=== PATIENT | female | born 1975 ===

== ENCOUNTER 2016-11-11 11:28 | Emergency (ER) | payer OTHER, SELFPAY ==
[2016-11-11 11:29] VITALS: BMI 21.5
[2016-11-11 11:38] VITALS: RESP 18
[2016-11-11 11:56] LABS: RBC URINE 2 /hpf (0-3); URINE BACTERIA RARE (<OCC); URINE BILIRUBIN NEGATIVE (NEGATIVE); URINE BLOOD NEGATIVE (NEGATIVE); URINE COLOR Yellow (YELLOW); URINE GLUCOSE (UA) NORMAL (Normal); URINE KETONE NEGATIVE (NEGATIVE); URINE LEUKOCYTE ESTERASE 1+ Leu/uL (Negative); URINE PROTEIN NEGATIVE (NEGATIVE); URINE UROBILINOGEN NORMAL mg/dL (0.2-1.0); WBC URINE 7 /hpf (0-5)
[2016-11-11] MEDS ORDERED: Sodium Chloride 0.9% 1,000 ML IV ONE (11:58)
[2016-11-11] MEDS ORDERED: Sodium Chloride 0.9% 1,000 ML ONE (12:08)
--- NOTE | 2016-11-11 12:24 | C.PDOC ---
History Of Present Illness 41 year old female, , presents to Emergency Department for evaluation of intermittent lower abdominal/pelvic pain associated with nausea for the last 2 weeks. Pt was told she is but is not sure how far along she is in her . She denies vaginal bleeding, vaginal discharge, vomiting, diarrhea, dysuria, hematuria, or fever. LMP: 10/04/16. Time Seen by Provider: 11/11/16 11:44 Chief Complaint (Nursing): Abdominal Pain History Per: Patient History/Exam Limitations: no limitations Onset/Duration Of Symptoms: Days (2 weeks) Current Symptoms Are (Timing): Still Present Severity: Mild Location Of Pain/Discomfort: Suprapubic Radiation Of Pain To:: None Quality Of Discomfort: "Pain" Associated Symptoms: Nausea. denies: Loss Of Appetite, Back Pain, Chest Pain, Urinary Symptoms Exacerbating Factors: None Alleviating Factors: None Additional History Per: Patient Abnormal Vaginal Bleeding: No Last Menstral Period: 10/04/16 : 4 Para: 3 Past Medical History Reviewed: Historical Data, Nursing Documentation, Vital Signs Vital Signs: Last Vital Signs Temp 97.7 F 11/11/16 14:01 Pulse 74 11/11/16 14:01 Resp 18 11/11/16 14:01 BP 117/78 11/11/16 14:01 Pulse Ox 98 11/11/16 15:01 - Medical History PMH: Anxiety, Asthma, HTN Surgical History: - [facility] Procedures LOW CERVICAL (03/22/13) Family History: States: No Known Family Hx - Social History Hx Tobacco Use: No Hx Alcohol Use: No Hx Substance Use: No - Immunization History Hx Tetanus Toxoid Vaccination: No Hx Influenza Vaccination: No Hx Pneumococcal Vaccination: No Review Of Systems Except As Marked, All Systems Reviewed And Found Negative. Constitutional: Negative for: Fever, Chills Cardiovascular: Negative for: Chest Pain Respiratory: Negative for: Shortness of Breath Gastrointestinal: Positive for: Nausea, Abdominal Pain. Negative for: Vomiting , Diarrhea, Constipation Genitourinary: Negative for: Dysuria, Frequency, Hematuria, Vaginal Discharge, Vaginal Bleeding Musculoskeletal: Negative for: Back Pain Physical Exam - Physical Exam Appears: Well, Non-toxic, No Acute Distress Skin: Normal Color, Warm, Dry Eye(s): bilateral: Normal Inspection Oral Mucosa: Moist Neck: Supple Cardiovascular: Rhythm Regular Respiratory: Normal Breath Sounds, No Rales, No Rhonchi, No Wheezing Gastrointestinal/Abdominal: Bowel Sounds, Soft, Tenderness (mild suprapubic TTP , (-) McBurney's), No Guarding, No Rebound Back: Normal Inspection, No CVA Tenderness Extremity: Bilateral: Atraumatic, Normal ROM Neurological/Psych: Oriented x3 ED Course And Treatment - Laboratory Results Result Diagrams: 11/11/16 12:20 11/11/16 12:20 O2 Sat by Pulse Oximetry: 98 (on RA) Pulse Ox Interpretation: Normal - CT Scan/US transvaginal US Other Rad Studies (CT/US): Read By Radiologist, Radiology Report Reviewed CT/US Interpretation: Indication: Pelvic pain, . Comparison: None available. Technique: Transvaginal pelvic ultrasound. Findings: The uterus measures approximately 10.8 x 6.1 x 6.1 cm. Anteverted. Cervix length measures approximately 4.1 cm. The gestational sac measures approximately 1.4 cm and is compatible with a gestational age of 5 weeks 5 days. Yolk sac and pole are not visualized. The right ovary measures 3.8 x 3.0 x 3.4 cm and contains 2.8 x 2.3 x 2.8 cm anechoic right renal lesion consistent with a cyst. The left ovary measures 2.2 x 1.2 x 2.1 cm. Blood flow was demonstrated to both ovaries. Small pelvic free fluid adjacent to the right ovary. Impression: Intrauterine gestational sac consistent with gestational age 5 weeks 5 days. No yolk sac or pole are not visualized. Correlate clinically. 2.8 cm probable right renal cyst. Small pelvic free fluid adjacent to the right ovary. Progress Note: Plan: Blood work, UA, OB transvaginal ultrasound ordered and reviewed. Patient given IV NS bolus, PO tylenol. Reevaluation Time: 13:50 Reassessment Condition: Improved (On reassessment, patient is resting comfortably and states she has no current pain. On exam, abdomen is soft and nontender. Blood work is unremarkable, US shows gestational sac consistent with [id number]. UA (+) for UTI - Rxs for macrobid and tylenol given. Patient instructed to return to ED or her pin ball machine mechanic in 48 hours for repeat beta and US to r /o ectopic/miscarriage (no heart beat on US). She understands she should return sooner if she has any concerning symptoms.) Disposition Counseled Patient/Family Regarding: Studies Performed, Diagnosis, Need For Followup, Rx Given - Disposition Referrals: [facility] at [facility] [Outside] Disposition: HOME/ ROUTINE Disposition Time: 13:55 Condition: STABLE Additional Instructions: DEVUELVA A LA QAMAR DE EMERGENCIA EN 48 HORAS PARA REPETIR EL NIVEL DE HORMONA Y EL ULTRASONIDO USE TYLENOL CHITRA SE NECESITA PARA EL DOLOR DEVUELVA A LA QAMAR DE EMERGENCIA SI LOS SNTOMAS EMPEORARAN Prescriptions: Acetaminophen [Tylenol 325mg tab] 650 mg PO Q6 PRN #30 tab PRN Reason: pain/fever Nitrofurantoin Macrocrystals [Macrobid] 1 cap PO BID #14 cap Instructions: (ED), Abdominal Pain in (ED), Urinary Tract Infection in (ED) Forms: [employer] (French) Print Language: LIBERIAN - Clinical Impression Clinical Impression: UTI (urinary tract infection), Abdominal pain affecting - Scribe Statement The provider has reviewed the documentation as recorded by the Scribe Rylie Joyce All medical record entries made by the Scribe were at my direction and personally dictated by me. I have reviewed the chart and agree that the record accurately reflects my personal performance of the history, physical exam, medical decision making, and the department course for this patient. I have also personally directed, reviewed, and agree with the discharge instructions and disposition.
[2016-11-11 12:25] LABS: BASO # 0.1 K/uL (0.0-0.2); BASO % 1.2 % (0.0-2.0); EOS # 0.1 K/uL (0.0-0.7); EOS % 1.4 % (0.0-4.0); HEMATOCRIT 31.7 % (34.0-47.0); LYMPH # 2.1 K/uL (1.0-4.3); LYMPH % 29.7 % (20.0-40.0); MEAN CELL VOLUME 82.9 fL (81.0-99.0); MEAN CORPUSCULAR HEMOGLOBIN 27.1 pg (27.0-31.0); MEAN CORPUSCULAR HGB CONC 32.7 g/dL (33.0-37.0); MEAN PLATELET VOLUME 8.3 fL (7.2-11.7); MONO # 0.3 K/uL (0.0-0.8); MONO % 4.7 % (0.0-10.0); WHITE BLOOD COUNT 7.1 K/uL (4.8-10.8)
[2016-11-11 12:47] LABS: CHLORIDE 106 mmol/L (98-107); POTASSIUM 3.9 mmol/L (3.6-5.2); SODIUM 139 mmol/L (132-148)
[2016-11-11 12:49] LABS: BILIRUBIN,TOTAL 0.4 mg/dL (0.2-1.3); GFR AFRICAN-AMERICAN > 60
[2016-11-11 12:50] LABS: ALB/GLOB RATIO 1.3 (1.0-2.1); ALKALINE PHOSPHATASE 84 U/L (38-126); ALT/SGPT 30 U/L (9-52); AST/SGOT 23 U/L (14-36); BLOOD UREA NITROGEN 12 mg/dL (7-17); CARBON DIOXIDE 23 mmol/L (22-30); GLUCOSE,RANDOM 101 mg/dL (65-105); TOTAL PROTEIN 7.1 g/dL (6.3-8.3)
[2016-11-11 12:51] LABS: CALCIUM 8.7 mg/dl (8.6-10.4)
--- NOTE | 2016-11-11 13:39 | US ---
Indication: Pelvic pain, Comparison: None available. Technique: Transvaginal pelvic ultrasound. Findings: The uterus measures approximately 10.8 x 6.1 x 6.1 cm. Anteverted. Cervix length measures approximately 4.1 cm. The gestational sac measures approximately 1.4 cm and is compatible with a gestational age of 5 weeks 5 days. Yolk sac and pole are not visualized. The right ovary measures 3.8 x 3.0 x 3.4 cm and contains 2.8 x 2.3 x 2.8 cm anechoic right renal lesion consistent with a cyst. The left ovary measures 2.2 x 1.2 x 2.1 cm. Blood flow was demonstrated to both ovaries. Small pelvic free fluid adjacent to the right ovary. Impression: Intrauterine gestational sac consistent with gestational age 5 weeks 5 days. No yolk sac or pole are not visualized. Correlate clinically. 2.8 cm probable right renal cyst. Small pelvic free fluid adjacent to the right ovary.
[2016-11-11 14:02] VITALS: BP 117/78; PULSE 74; TEMP 97.7
[2016-11-11 15:01] VITALS: O2SAT 98
== END 2016-11-11 14:02 | disposition home or self-care (01) ==
LOC: C.ER 11:28
DX: O23.41 Unspecified infection of urinary tract in pregnancy, first trimester (principal); R10.9 Unspecified abdominal pain; Z3A.01 Less than 8 weeks gestation of pregnancy
CPT/HCPCS: 76817; 80053; 81001; 84702; 84703; 85025; 86850; 86900; 96360; 99285; J7040

== ENCOUNTER 2016-11-13 13:16 | Emergency (ER) | payer OTHER ==
[2016-11-13 13:16] VITALS: BMI 21.5
[2016-11-13 13:38] VITALS: O2SAT 100
[2016-11-13] MEDS ORDERED: Sodium Chloride 0.9% 1,000 ML IV ONE (14:10)
[2016-11-13] MEDS ORDERED: Sodium Chloride 0.9% 1,000 ML ONE (14:20)
[2016-11-13 14:26] LABS: BASO # 0.1 K/uL (0.0-0.2); BASO % 0.8 % (0.0-2.0); EOS # 0.1 K/uL (0.0-0.7); EOS % 1.1 % (0.0-4.0); HEMATOCRIT 31.4 % (34.0-47.0); LYMPH # 2.5 K/uL (1.0-4.3); LYMPH % 30.1 % (20.0-40.0); MEAN CELL VOLUME 83.5 fL (81.0-99.0); MEAN CORPUSCULAR HEMOGLOBIN 27.6 pg (27.0-31.0); MEAN CORPUSCULAR HGB CONC 33.1 g/dL (33.0-37.0); MEAN PLATELET VOLUME 8.5 fL (7.2-11.7); MONO # 0.5 K/uL (0.0-0.8); MONO % 6.1 % (0.0-10.0); RED CELL DISTRIBUTION WIDTH 14.9 % (11.5-14.5); WHITE BLOOD COUNT 8.2 K/uL (4.8-10.8)
[2016-11-13 14:35] LABS: ALB/GLOB RATIO 1.2 (1.0-2.1); ALKALINE PHOSPHATASE 81 U/L (38-126); ALT/SGPT 31 U/L (9-52); AST/SGOT 24 U/L (14-36); BILIRUBIN,TOTAL 0.4 mg/dL (0.2-1.3); BLOOD UREA NITROGEN 10 mg/dL (7-17); CALCIUM 9.3 mg/dl (8.6-10.4); CARBON DIOXIDE 23 mmol/L (22-30); CHLORIDE 100 mmol/L (98-107); GFR AFRICAN-AMERICAN > 60; GLUCOSE,RANDOM 92 mg/dL (65-105); POTASSIUM 3.7 mmol/L (3.6-5.2); SODIUM 136 mmol/L (132-148); TOTAL PROTEIN 7.5 g/dL (6.3-8.3)
--- NOTE | 2016-11-13 15:27 | US ---
HISTORY: Pain, r/o ectopic. COMPARISON: Transvaginal pelvic ultrasound examination 11/11/2016. TECHNIQUE: Transvaginal pelvic ultrasound is performed for evaluation and persistent pelvic pain. FINDINGS: UTERUS: Measures 10.2 x 6.7 x 6.7 cm. Intrauterine gestation is identified once again with a gestational sac is mean sac diameter measures 1.5 cm corresponding to 5 weeks 6 days estimated gestational age. The pole yolk sac are yet not identified which is consistent with the prior ultrasound showing the same pattern. The prior examination yield a gestational age of 5 weeks 5 days which is concordant with the current exam. Additionally reaction remains grossly unremarkable no definite hemorrhage seen related. No myometrial pathology grossly evident. ENDOMETRIUM: Intrauterine gestation. CERVIX: No cervical abnormality identified. RIGHT OVARY: Measures 4.2 x 3.9 x 4.0 cm. No solid mass. A 2.9 x 2.5 x 3.0 cm simple cyst identified in the right ovary, not simply changed in the interval. Normal intra-ovarian arterial blood flow is been captured on spectral Doppler analysis. LEFT OVARY: Measures 1.9 x 1.5 x 1.9 cm. No solid mass. Normal intra-ovarian arterial blood flow is been captured on spectral Doppler analysis. FREE FLUID: Trace cul-de-sac fluid is seen as well as of the right adnexal compartment. OTHER FINDINGS: No definitive ectopic gestation appreciable this time. IMPRESSION: Intrauterine gestation is suggested with mean sac diameter suggesting 5 weeks 6 days estimated gestational age which is concordant with prior transvaginal pelvic ultrasound 11/11/2016. No yolk sac or pole yet visible. Viability under clear, with failure of not excluded. No definite ectopic gestation. Still, pseudo gestational sac with ectopic gestation not completely excluded and further clinical correlation is advised. Sonographic follow-up is advised in 1 week. Stable probable corpus luteum cyst right ovary.
[2016-11-13 15:56] LABS: URINE BILIRUBIN NEGATIVE (NEGATIVE); URINE BLOOD NEGATIVE (NEGATIVE); URINE COLOR Straw (YELLOW); URINE GLUCOSE (UA) NORMAL (Normal); URINE KETONE NEGATIVE (NEGATIVE); URINE LEUKOCYTE ESTERASE NEG Leu/uL (Negative); URINE PROTEIN NEGATIVE (NEGATIVE); URINE UROBILINOGEN NORMAL mg/dL (0.2-1.0); WBC URINE < 1 /hpf (0-5)
--- NOTE | 2016-11-13 16:40 | C.PDOC ---
History Of Present Illness Pt is here for repeat pelvic US and beta hcg (she was seen here 2 days ago and asked to return). Time Seen by Provider: 11/13/16 13:54 Chief Complaint (Nursing): Abdominal Pain History Per: Patient, Scrapper History/Exam Limitations: language barrier Onset/Duration Of Symptoms: Days Current Symptoms Are (Timing): Still Present Severity: Moderate Location Of Pain/Discomfort: Suprapubic Quality Of Discomfort: "Pain" Associated Symptoms: Nausea Alleviating Factors: None Additional History Per: Prior Records Abnormal Vaginal Bleeding: No Past Medical History Reviewed: Historical Data, Nursing Documentation, Vital Signs Vital Signs: Last Vital Signs Temp 98.2 F 11/13/16 13:32 Pulse 79 11/13/16 13:32 Resp 16 11/13/16 14:05 BP 104/71 11/13/16 13:32 Pulse Ox 100 11/13/16 13:32 - Medical History PMH: Anxiety, Asthma, HTN Surgical History: - [facility] Procedures LOW CERVICAL (03/22/13) Family History: States: Unknown Family Hx - Social History Hx Tobacco Use: No Hx Alcohol Use: No Hx Substance Use: No - Immunization History Hx Tetanus Toxoid Vaccination: No Hx Influenza Vaccination: No Hx Pneumococcal Vaccination: No Review Of Systems Except As Marked, All Systems Reviewed And Found Negative. Constitutional: Negative for: Fever Cardiovascular: Negative for: Chest Pain Respiratory: Negative for: Shortness of Breath Gastrointestinal: Negative for: Vomiting Genitourinary: Positive for: Pelvic Pain. Negative for: Dysuria Musculoskeletal: Negative for: Neck Pain Skin: Negative for: Rash Neurological: Negative for: Weakness, Numbness Physical Exam - Physical Exam Appears: Non-toxic, No Acute Distress Skin: Normal Color, Warm, Dry, No Rash Head: Atraumatic, Normacephalic Eye(s): bilateral: PERRL, EOMI Oral Mucosa: Moist Neck: Normal ROM, Supple Cardiovascular: Rhythm Regular Respiratory: Normal Breath Sounds, No Accessory Muscle Use Gastrointestinal/Abdominal: Soft, Tenderness (mild, nonspecific), No Guarding, No Rebound Back: No CVA Tenderness Extremity: Normal ROM Neurological/Psych: Oriented x3, Normal Speech, Normal Cognition, Normal Motor, Normal Sensation ED Course And Treatment - Laboratory Results Result Diagrams: 11/13/16 14:19 11/13/16 14:19 Interpretation Of Abnormal: Beta hcg is increasing. Hgb is stable. UTI resolved. O2 Sat by Pulse Oximetry: 100 Pulse Ox Interpretation: Normal - CT Scan/US Pelvic US Other Rad Studies (CT/US): Read By Radiologist, Radiology Report Reviewed CT/US Interpretation: IMPRESSION: Intrauterine gestation is suggested with mean sac diameter suggesting 5 weeks 6 days estimated gestational age which is concordant with prior transvaginal pelvic ultrasound 11/11/2016. No yolk sac or pole yet visible. Viability under clear, with failure of not excluded. No definite ectopic gestation. Still, pseudo gestational sac with ectopic gestation not completely excluded and further clinical correlation is advised. Sonographic follow-up is advised in 1 week. Stable probable corpus luteum cyst right ovary. - Physician Consult Information Physician Contacted: Melany Joyce (Rn Case Manager) Outcome Of Conversation: I discussed with her the pt's presentation, lab and US findings. She states pt has a failed and recommends pt to be discharged and f/up with outpt Rn Case Manager for D&C. Disposition Counseled Patient/Family Regarding: Studies Performed, Diagnosis, Need For Followup - Disposition Referrals: Brendon Garsia [Staff Provider] - [facility] [Outside] Disposition: HOME/ ROUTINE Disposition Time: 16:45 Condition: FAIR Additional Instructions: Follow up in the clinic within 1 week for further evaluation and treatment. Return to the ER if you develop heavy bleeding, dizziness, worsening of symptoms or if you have any other concerns. Forms: [employer] (Kuwaiti), Gen Discharge Inst Kuwaiti Print Language: PRYDEINIG - Clinical Impression Clinical Impression: Blighted ovum
[2016-11-13 17:08] VITALS: BP 108/72; PULSE 68; RESP 18; TEMP 98.5
== END 2016-11-13 17:14 | disposition home or self-care (01) ==
LOC: C.ER 13:16
DX: O02.0 Blighted ovum and nonhydatidiform mole (principal)
CPT/HCPCS: 76817; 80053; 81001; 84702; 85025; 87086; 96361; 96374; 96375; 99285; J2765; J7040

== ENCOUNTER 2016-11-28 12:44 | Emergency (ER) | payer OTHER ==
[2016-11-28 12:45] VITALS: BMI 21.5
== END 2016-11-28 13:54 | disposition left against medical advice (07) ==
LOC: C.ER 12:44
DX: Z02.89 Encounter for other administrative examinations (principal); R10.9 Unspecified abdominal pain

== ENCOUNTER 2016-11-29 09:30 | Emergency (ER) | payer OTHER ==
[2016-11-29 09:30] VITALS: BMI 21.5
[2016-11-29 09:59] VITALS: RESP 18; O2SAT 99
[2016-11-29 10:28] LABS: BASO # 0.1 K/uL (0.0-0.2); BASO % 1.1 % (0.0-2.0); EOS # 0.1 K/uL (0.0-0.7); EOS % 0.8 % (0.0-4.0); HEMATOCRIT 30.9 % (34.0-47.0); LYMPH % 24.8 % (20.0-40.0); MEAN CELL VOLUME 83.8 fL (81.0-99.0); MEAN CORPUSCULAR HEMOGLOBIN 27.1 pg (27.0-31.0); MEAN CORPUSCULAR HGB CONC 32.3 g/dL (33.0-37.0); MEAN PLATELET VOLUME 8.5 fL (7.2-11.7); MONO # 0.4 K/uL (0.0-0.8); MONO % 5.1 % (0.0-10.0); RED CELL DISTRIBUTION WIDTH 15.7 % (11.5-14.5)
[2016-11-29 10:36] LABS: CHLORIDE 105 mmol/L (98-107)
[2016-11-29 10:37] LABS: POTASSIUM 3.9 mmol/L (3.6-5.2); SODIUM 138 mmol/L (132-148)
[2016-11-29 10:39] LABS: ALB/GLOB RATIO 1.2 (1.0-2.1); AST/SGOT 26 U/L (14-36); BILIRUBIN,TOTAL 0.5 mg/dL (0.2-1.3); BLOOD UREA NITROGEN 9 mg/dL (7-17); CARBON DIOXIDE 22 mmol/L (22-30); GFR AFRICAN-AMERICAN > 60; TOTAL PROTEIN 7.4 g/dL (6.3-8.3)
[2016-11-29 10:40] LABS: ALKALINE PHOSPHATASE 69 U/L (38-126); ALT/SGPT 34 U/L (9-52); CALCIUM 9.1 mg/dl (8.6-10.4); GLUCOSE,RANDOM 94 mg/dL (65-105)
[2016-11-29 11:06] LABS: RBC URINE 3 /hpf (0-3); URINE BACTERIA RARE (<OCC); URINE BILIRUBIN NEGATIVE (NEGATIVE); URINE BLOOD NEGATIVE (NEGATIVE); URINE COLOR Yellow (YELLOW); URINE GLUCOSE (UA) NORMAL (Normal); URINE KETONE NEGATIVE (NEGATIVE); URINE LEUKOCYTE ESTERASE 1+ Leu/uL (Negative); URINE PROTEIN NEGATIVE (NEGATIVE); URINE UROBILINOGEN NORMAL mg/dL (0.2-1.0); WBC URINE 6 /hpf (0-5)
--- NOTE | 2016-11-29 11:17 | US ---
Indication: Pain Comparison: Ob transvaginal ultrasound performed 11/13/16 Technique: Transvaginal pelvic ultrasound Findings: The uterus measures approximately 12.2 x 6.2 x 8.8 cm. Retroverted. Cervix length measures approximately 3.5 cm. There is a single intrauterine fetus present. 3 mm yolk sac. The gestational sac measures 4.6 cm and is compatible with a gestational age of 10 weeks 1 day. The crown-rump length measures 2.0 cm and is compatible with a gestational age of 8 weeks 4 days. heart motion is not detected. The right ovary measures 3.9 x 2.9 x 3.2 cm and contains 2.7 cm cyst. The left ovary measures 3.5 x 1.7 x 2.9 cm. Blood flow was demonstrated to both ovaries. Impression: Single intrauterine with estimated gestational age 10 weeks 1 day by gestational sac calculation and 8 weeks 4 days by crown-rump length calculation. heart motion was not detected. Correlate clinically. 2.7 cm right ovarian cyst.
--- NOTE | 2016-11-29 11:46 | C.PDOC ---
History Of Present Illness 41 y/o female currently presents to ED with complaints of pelvic pain since yesterday. Occasional nausea. Patient denies vaginal bleeding, vaginal discharge, dysuria, urinary frequency, fever, back pain or any other complaints at this time. Time Seen by Provider: 11/29/16 09:47 Chief Complaint (Nursing): Abdominal Pain History Per: Patient History/Exam Limitations: no limitations Onset/Duration Of Symptoms: Days Current Symptoms Are (Timing): Still Present Past Medical History Reviewed: Historical Data, Nursing Documentation, Vital Signs Vital Signs: Last Vital Signs Temp 98 F 11/29/16 12:09 Pulse 79 11/29/16 12:09 Resp 18 11/29/16 12:09 BP 117/79 11/29/16 12:09 Pulse Ox 99 11/29/16 12:09 - Medical History PMH: Anxiety, Asthma, HTN Surgical History: - [facility] Procedures LOW CERVICAL (03/22/13) Family History: States: No Known Family Hx - Social History Hx Tobacco Use: No Hx Alcohol Use: No Hx Substance Use: No - Immunization History Hx Tetanus Toxoid Vaccination: No Hx Influenza Vaccination: No Hx Pneumococcal Vaccination: No Review Of Systems Except As Marked, All Systems Reviewed And Found Negative. Genitourinary: Positive for: Pelvic Pain. Negative for: Dysuria, Frequency, Vaginal Discharge, Vaginal Bleeding Musculoskeletal: Negative for: Back Pain Skin: Negative for: Rash Physical Exam - Physical Exam Appears: Non-toxic, No Acute Distress Skin: Normal Color, Warm, Dry, No Rash Head: Atraumatic, Normacephalic Eye(s): bilateral: Normal Inspection, EOMI Nose: Normal Oral Mucosa: Moist Neck: Normal ROM, Supple Chest: Symmetrical Cardiovascular: Rhythm Regular, No Murmur Respiratory: Normal Breath Sounds, No Rales, No Rhonchi, No Wheezing Gastrointestinal/Abdominal: Soft, Tenderness ((+) suprapubic tenderness), No Guarding, No Rebound Neurological/Psych: Oriented x3 ED Course And Treatment - Laboratory Results Result Diagrams: 11/29/16 10:21 11/29/16 10:21 O2 Sat by Pulse Oximetry: 99 (RA) Pulse Ox Interpretation: Normal - CT Scan/US OB Transvaginal Preg Other Rad Studies (CT/US): Interpreted By Me, Read By Radiologist CT/US Interpretation: Indication: Pain. Comparison: Ob transvaginal ultrasound performed 11/13/16. Technique: Transvaginal pelvic ultrasound. Findings: The uterus measures approximately 12.2 x 6.2 x 8.8 cm. Retroverted. Cervix length measures approximately 3.5 cm. There is a single intrauterine fetus present. 3 mm yolk sac. The gestational sac measures 4.6 cm and is compatible with a gestational age of 10 weeks 1 day. The crown-rump length measures 2.0 cm and is compatible with a gestational age of 8 weeks 4 days. heart motion is not detected. The right ovary measures 3.9 x 2.9 x 3.2 cm and contains 2.7 cm cyst. The left ovary measures 3.5 x 1.7 x 2.9 cm. Blood flow was demonstrated to both ovaries. Impression: Single intrauterine with estimated gestational age 10 weeks 1 day by gestational sac calculation and 8 weeks 4 days by crown-rump length calculation. heart motion was not detected. Correlate clinically. 2.7 cm right ovarian cyst. Progress Note: Case discussed with OB construction tech (Dr. Quintero), Patient had a missed and will possible need an outpatient D&C. Discussed US results with patient and instructed to follow up with OB tomorrow. Copies of work up given to patient. Transcription used for better understanding of patient Disposition - Disposition Disposition: HOME/ ROUTINE Disposition Time: 11:50 Condition: STABLE Additional Instructions: Vaya a faith mdico o la clnica en manana sin falta, para mas evaluacin. Volver a la kianna de emergencia en cualquier momento si los sntomas persisten o empeoran. Instructions: Threatened Miscarriage (ED) Forms: [employer] (Sierra Leonean) Print Language: KYRGYZ - Clinical Impression Clinical Impression: Missed - PA / PAD MACHINE FEEDER / Resident Statement MD/DO has reviewed & agrees with the documentation as recorded. - Scribe Statement The provider has reviewed the documentation as recorded by the Janessaibmichael Ureña All medical record entries made by the Scribe were at my direction and personally dictated by me. I have reviewed the chart and agree that the record accurately reflects my personal performance of the history, physical exam, medical decision making, and the department course for this patient. I have also personally directed, reviewed, and agree with the discharge instructions and disposition.
[2016-11-29 12:10] VITALS: BP 117/79; PULSE 79; TEMP 98
== END 2016-11-29 12:10 | disposition home or self-care (01) ==
LOC: C.ER 09:30
DX: O02.1 Missed abortion (principal)

== ENCOUNTER 2016-12-21 09:48 | Emergency (ER) | payer SELFPAY ==
[2016-12-21 09:48] VITALS: BMI 21.5
[2016-12-21 09:58] VITALS: O2SAT 100
[2016-12-21 10:50] LABS: BASO % 0.4 % (0.0-2.0); EOS # 0.1 K/uL (0.0-0.7); EOS % 1.3 % (0.0-4.0); HEMATOCRIT 32.9 % (34.0-47.0); LYMPH # 2.3 K/uL (1.0-4.3); LYMPH % 26.4 % (20.0-40.0); MEAN CORPUSCULAR HEMOGLOBIN 28.2 pg (27.0-31.0); MEAN CORPUSCULAR HGB CONC 33.2 g/dL (33.0-37.0); MEAN PLATELET VOLUME 8.5 fL (7.2-11.7); MONO # 0.5 K/uL (0.0-0.8); MONO % 6.4 % (0.0-10.0); RED CELL DISTRIBUTION WIDTH 16.3 % (11.5-14.5); WHITE BLOOD COUNT 8.6 K/uL (4.8-10.8)
--- NOTE | 2016-12-21 11:03 | C.PDOC ---
History Of Present Illness 41 y/o female currently 10 weeks presents to ED with complaints of lower abdominal pain with associated nausea. Patient has had prior 3 c- section and denies fever, chills, vaginal bleeding, back pain or any other complaints at this time. Time Seen by Provider: 12/21/16 10:01 Chief Complaint (Nursing): Abdominal Pain History Per: Patient History/Exam Limitations: no limitations Onset/Duration Of Symptoms: Days Current Symptoms Are (Timing): Still Present Severity: None Location Of Pain/Discomfort: Suprapubic Radiation Of Pain To:: None Abnormal Vaginal Bleeding: No : 5 Para: 2 Past Medical History Reviewed: Historical Data, Nursing Documentation, Vital Signs Vital Signs: Last Vital Signs Temp 98.1 F 12/21/16 12:58 Pulse 84 12/21/16 12:58 Resp 18 12/21/16 12:58 BP 111/72 12/21/16 12:58 Pulse Ox 100 12/21/16 13:07 - Medical History PMH: Anxiety, Asthma (NO MEDS), HTN (NO MEDS) Surgical History: No Surg Hx, - [facility] Procedures LOW CERVICAL (03/22/13) Family History: States: No Known Family Hx - Social History Hx Tobacco Use: No Hx Alcohol Use: No Hx Substance Use: No - Immunization History Hx Tetanus Toxoid Vaccination: No Hx Influenza Vaccination: No Hx Pneumococcal Vaccination: No Review Of Systems Constitutional: Negative for: Fever, Chills Gastrointestinal: Positive for: Nausea, Abdominal Pain. Negative for: Vomiting , Diarrhea Genitourinary: Negative for: Vaginal Bleeding Musculoskeletal: Negative for: Back Pain Skin: Negative for: Rash Physical Exam - Physical Exam Appears: Non-toxic, No Acute Distress Skin: Normal Color, Warm, Dry, No Rash Head: Atraumatic, Normacephalic Oral Mucosa: Moist Throat: Normal, No Erythema, No Exudate Neck: Normal ROM, Supple Cardiovascular: Rhythm Regular Respiratory: Normal Breath Sounds, No Rales, No Rhonchi, No Wheezing Gastrointestinal/Abdominal: Soft, Tenderness (Mild suprapubic), No Guarding, No Rebound Back: No CVA Tenderness Neurological/Psych: Oriented x3 ED Course And Treatment - Laboratory Results Result Diagrams: 12/21/16 10:44 12/21/16 10:44 Lab Interpretation: No Acute Changes Urine POC: Positive O2 Sat by Pulse Oximetry: 100 (RA) Pulse Ox Interpretation: Normal - CT Scan/US No standard instances Other Rad Studies (CT/US): Read By Radiologist, Radiology Report Reviewed CT/US Interpretation: Findings: Uterus measures approximately 12.6 x 6.9 x 9.2 cm. Anteverted. Cervix length measures approximately 2.7 cm. There is a single intrauterine fetus present. Yolk sac is not identified. The crown-rump length measures 2.1 cm and is compatible with a gestational age of 8 weeks 5 days. heart motion was not detected during this examination. The right ovary measures 2.6 x 2.5 x 2.6 cm. The left ovary measures 2.7 x 1.4 x 2.6 cm. Blood flow was demonstrated to both ovaries. Impression: Single intrauterine with estimated gestational age 8 weeks 5 days. Yolk sac is not identified. heart motion was not detected. Progress Note: On re-evaluation abdomen soft, in no distress. Patient advised to follow up with clinic on monday Reassessment Condition: Unchanged - Physician Consult Information Physician Contacted: Vini Jackson Outcome Of Conversation: follow up at [facility] clinic on monday Medical Decision Making Medical Decision Making: Plan: US, Blood work, UA Disposition Discussed With Dr.: Vini Jackson Doctor Will See Patient In The: Office Counseled Patient/Family Regarding: Studies Performed, Diagnosis, Need For Followup - Disposition Referrals: [facility] at [facility] [Outside] Disposition: HOME/ ROUTINE Disposition Time: 12:45 Condition: STABLE Additional Instructions: Follow up at clinic on monday for further evaluation Instructions: Threatened Miscarriage (ED) Forms: [id number] (Greenlandic) Print Language: DIVEHI - POA Present On Arrival: None - Clinical Impression Clinical Impression: Abdominal pain, Threatened in first trimester, demise - PA / INSULATION TECHNICIAN / Resident Statement MD/DO has reviewed & agrees with the documentation as recorded. - Scribe Statement The provider has reviewed the documentation as recorded by the Eder Ureña All medical record entries made by the Janessaibmichael were at my direction and personally dictated by me. I have reviewed the chart and agree that the record accurately reflects my personal performance of the history, physical exam, medical decision making, and the department course for this patient. I have also personally directed, reviewed, and agree with the discharge instructions and disposition.
[2016-12-21 11:06] LABS: RBC URINE 3 /hpf (0-3); URINE BACTERIA RARE (<OCC); URINE BILIRUBIN NEGATIVE (NEGATIVE); URINE BLOOD NEGATIVE (NEGATIVE); URINE COLOR Yellow (YELLOW); URINE GLUCOSE (UA) NORMAL (Normal); URINE KETONE NEGATIVE (NEGATIVE); URINE LEUKOCYTE ESTERASE 3+ Leu/uL (Negative); URINE PROTEIN NEGATIVE (NEGATIVE); URINE UROBILINOGEN NORMAL mg/dL (0.2-1.0); WBC URINE 50 /hpf (0-5)
[2016-12-21 11:09] LABS: CHLORIDE 102 mmol/L (98-107); SODIUM 137 mmol/L (132-148)
[2016-12-21 11:10] LABS: POTASSIUM 3.5 mmol/L (3.6-5.2)
[2016-12-21 11:12] LABS: ALKALINE PHOSPHATASE 69 U/L (38-126); ALT/SGPT 22 U/L (9-52); AST/SGOT 28 U/L (14-36); BILIRUBIN,TOTAL 0.4 mg/dL (0.2-1.3); BLOOD UREA NITROGEN 10 mg/dL (7-17); CALCIUM 9.4 mg/dl (8.6-10.4); CARBON DIOXIDE 21 mmol/L (22-30); GFR AFRICAN-AMERICAN > 60; GLUCOSE,RANDOM 95 mg/dL (65-105)
--- NOTE | 2016-12-21 11:57 | US ---
Indication: Bleeding Comparison: Ob transvaginal ultrasound performed 11/29/16 Technique: 1st trimester ultrasound Findings: Uterus measures approximately 12.6 x 6.9 x 9.2 cm. Anteverted. Cervix length measures approximately 2.7 cm. There is a single intrauterine fetus present. Yolk sac is not identified. The crown-rump length measures 2.1 cm and is compatible with a gestational age of 8 weeks 5 days. heart motion was not detected during this examination. The right ovary measures 2.6 x 2.5 x 2.6 cm. The left ovary measures 2.7 x 1.4 x 2.6 cm. Blood flow was demonstrated to both ovaries. Impression: Single intrauterine with estimated gestational age 8 weeks 5 days. Yolk sac is not identified. heart motion was not detected.
[2016-12-21 12:59] VITALS: BP 111/72; PULSE 84; RESP 18; TEMP 98.1
== END 2016-12-21 13:00 | disposition home or self-care (01) ==
LOC: C.ER 09:48
DX: O02.1 Missed abortion (principal); Z3A.08 8 weeks gestation of pregnancy; R10.30 Lower abdominal pain, unspecified

== ENCOUNTER 2016-12-23 13:20 | Emergency (ER) | payer SELFPAY ==
[2016-12-23 13:20] VITALS: BMI 21.5
[2016-12-23 13:31] VITALS: O2SAT 100
[2016-12-23] MEDS ORDERED: Sodium Chloride 0.9% 1,000 ML IV ONE (13:56)
[2016-12-23 14:20] LABS: BASO % 0.4 % (0.0-2.0); EOS # 0.1 K/uL (0.0-0.7); EOS % 1.2 % (0.0-4.0); HEMATOCRIT 34.3 % (34.0-47.0); LYMPH # 2.3 K/uL (1.0-4.3); LYMPH % 24.9 % (20.0-40.0); MEAN CELL VOLUME 84.9 fL (81.0-99.0); MEAN CORPUSCULAR HEMOGLOBIN 28.3 pg (27.0-31.0); MEAN CORPUSCULAR HGB CONC 33.3 g/dL (33.0-37.0); MEAN PLATELET VOLUME 8.4 fL (7.2-11.7); MONO # 0.6 K/uL (0.0-0.8); MONO % 6.3 % (0.0-10.0); RED CELL DISTRIBUTION WIDTH 16.2 % (11.5-14.5); WHITE BLOOD COUNT 9.4 K/uL (4.8-10.8)
[2016-12-23 14:24] LABS: RBC URINE 71 /hpf (0-3); URINE BILIRUBIN NEGATIVE (NEGATIVE); URINE BLOOD 3+ (NEGATIVE); URINE COLOR Yellow (YELLOW); URINE GLUCOSE (UA) NORMAL (Normal); URINE KETONE NEGATIVE (NEGATIVE); URINE LEUKOCYTE ESTERASE 2+ Leu/uL (Negative); URINE PROTEIN NEGATIVE (NEGATIVE); URINE UROBILINOGEN NORMAL mg/dL (0.2-1.0); WBC URINE 31 /hpf (0-5)
[2016-12-23 14:34] LABS: CHLORIDE 99 mmol/L (98-107)
[2016-12-23 14:35] LABS: POTASSIUM 3.9 mmol/L (3.6-5.2); SODIUM 136 mmol/L (132-148)
[2016-12-23 14:37] LABS: AST/SGOT 22 U/L (14-36); BILIRUBIN,TOTAL 0.5 mg/dL (0.2-1.3); BLOOD UREA NITROGEN 10 mg/dL (7-17); CARBON DIOXIDE 24 mmol/L (22-30); GFR AFRICAN-AMERICAN > 60; TOTAL PROTEIN 8.5 g/dL (6.3-8.3)
[2016-12-23 14:38] LABS: ALKALINE PHOSPHATASE 65 U/L (38-126); ALT/SGPT 29 U/L (9-52); CALCIUM 9.6 mg/dl (8.6-10.4); GLUCOSE,RANDOM 86 mg/dL (65-105)
--- NOTE | 2016-12-23 14:50 | US ---
PROCEDURE: OB Pelvic Ultrasound HISTORY: abd. pain - repeat US COMPARISON: 12/21/2016 FINDINGS: UTERUS: Examination demonstrates a single intrauterine gestation. The crown-rump length is equivalent to 8 weeks 2 days. The gestational sac diameter is equivalent to 10 weeks 3 days. These findings are essentially unchanged compared to examination of 11/29/2016. The gestational sac is irregular in contour. There is no subchorionic hemorrhage identified. There is no cardiac activity observed. Uterus measures 12.5 x 8.2 x 9.4 cm. No mass CERVIX: The cervix measures 3.5 cm in length. There is trace endocervical fluid identified. RIGHT OVARY: Measures 3.9 x 2.4 x 2.7 cm. No mass. Normal flow. LEFT OVARY: Measures 3.6 x 1.7 x 3.3 cm. No mass. Normal flow. FREE FLUID: None. OTHER FINDINGS: None. IMPRESSION: Single intrauterine gestation without evident cardiac activity. [place]-rump length and gestational sac diameter are discordant. There has been no significant change in either the crown-rump length or gestational sac diameter since 11/29/2016. Findings consistent with demise. Irregular contour gestational sac. No subchorionic hemorrhage. Trace endocervical fluid.
--- NOTE | 2016-12-23 14:53 | C.PDOC ---
History Of Present Illness 41 y/o female, , presents to ED for evaluation of low abdominal cramping and vaginal bleeding for last 2 days. Pt reports being seen by her OBGYN yesterday who referred her to the ER for further evaluation. Notes using 4 pads a day for the last 2 days. Pt has multiple visits for demises. No fever, urinary symptoms, or n/v/d. Chief Complaint (Nursing): Abdominal Pain History Per: Patient History/Exam Limitations: no limitations Onset/Duration Of Symptoms: Days (2) Current Symptoms Are (Timing): Still Present Location Of Pain/Discomfort: Suprapubic Radiation Of Pain To:: None Quality Of Discomfort: Cramping, "Pain" Associated Symptoms: denies: Loss Of Appetite, Back Pain, Chest Pain, Constipation, Urinary Symptoms Exacerbating Factors: None Alleviating Factors: None Recent travel outside of the [place]: No Additional History Per: Patient Abnormal Vaginal Bleeding: Yes : 5 Para: 3 Past Medical History Reviewed: Historical Data, Nursing Documentation, Vital Signs Vital Signs: Last Vital Signs Temp 99.2 F 12/23/16 16:08 Pulse 82 12/23/16 16:08 Resp 14 12/23/16 16:08 BP 121/84 12/23/16 16:08 Pulse Ox 100 12/23/16 20:17 - Medical History PMH: Anxiety, Asthma (NO MEDS), HTN (NO MEDS) Denies: Chronic Kidney Disease Surgical History: - [facility] Procedures LOW CERVICAL (03/22/13) Family History: States: Unknown Family Hx - Social History Hx Tobacco Use: No Hx Alcohol Use: No Hx Substance Use: No - Immunization History Hx Tetanus Toxoid Vaccination: No Hx Influenza Vaccination: No Hx Pneumococcal Vaccination: No Review Of Systems Except As Marked, All Systems Reviewed And Found Negative. Constitutional: Negative for: Fever, Chills Cardiovascular: Negative for: Chest Pain, Palpitations Respiratory: Negative for: Cough, Shortness of Breath Gastrointestinal: Positive for: Abdominal Pain. Negative for: Nausea, Vomiting , Diarrhea Genitourinary: Positive for: Vaginal Bleeding. Negative for: Dysuria, Frequency , Hematuria Musculoskeletal: Negative for: Back Pain Physical Exam - Physical Exam Appears: Non-toxic, No Acute Distress Skin: Normal Color, Warm, Dry Head: Atraumatic, Normacephalic Eye(s): bilateral: Normal Inspection Neck: Normal ROM, Supple Chest: Symmetrical Cardiovascular: Rhythm Regular, No Murmur Respiratory: Normal Breath Sounds, No Rales, No Rhonchi, No Wheezing Gastrointestinal/Abdominal: Soft, Tenderness (suprapubic), No Guarding, No Rebound Back: No CVA Tenderness Extremity: Normal ROM, No Pedal Edema Neurological/Psych: Oriented x3, Normal Speech ED Course And Treatment - Laboratory Results Result Diagrams: 12/23/16 14:13 12/23/16 14:13 O2 Sat by Pulse Oximetry: 100 (RA) Pulse Ox Interpretation: Normal - CT Scan/US US - Transvaginal Other Rad Studies (CT/US): Read By Radiologist, Radiology Report Reviewed CT/US Interpretation: PROCEDURE: OB Pelvic Ultrasound. HISTORY: abd. pain - repeat US. COMPARISON: 12/21/2016. FINDINGS: UTERUS: Examination demonstrates a single intrauterine gestation. The crown-rump length is equivalent to 8 weeks 2 days. The gestational sac diameter is equivalent to 10 weeks 3 days. These findings are essentially unchanged compared to examination of 11/29/2016. The gestational sac is irregular in contour. There is no subchorionic hemorrhage identified. There is no cardiac activity observed. Uterus measures 12.5 x 8.2 x 9.4 cm. No mass. CERVIX: The cervix measures 3.5 cm in length. There is trace endocervical fluid identified. RIGHT OVARY: Measures 3.9 x 2.4 x 2.7 cm. No mass. Normal flow. LEFT OVARY: Measures 3.6 x 1.7 x 3.3 cm. No mass. Normal flow. FREE FLUID: None. OTHER FINDINGS: None. IMPRESSION: Single intrauterine gestation without evident cardiac activity. [place]-rump length and gestational sac diameter are discordant. There has been no significant change in either the crown-rump length or gestational sac diameter since 11/29/2016. Findings consistent with demise. Irregular contour gestational sac. No subchorionic hemorrhage. Trace endocervical fluid. Medical Decision Making Medical Decision Making: Spoke with Dr. Quintero, director correctional agency OB, instructed on outpt follow up. Pt understands plan. Disposition - Disposition Referrals: [facility] Ruba Schumacher, [Non-Staff] - Disposition: HOME/ ROUTINE Disposition Time: 15:30 Condition: GOOD Additional Instructions: Thank you for letting us take care of you today. Your provider was Dr. Rene. You were treated for a miscarriage. The emergency medical care you received today was directed at your acute symptoms. If you were prescribed any medication, please fill it and take as directed. It may take several days for your symptoms to resolve. Return to the Emergency Department if your symptoms worsen, do not improve, or if you have any other problems. Please contact your doctor or call one of the physicians/clinics you have been referred to that are listed on the Patient Visit Information form that is included in your discharge packet. Bring any paperwork you were given at discharge with you along with any medications you are taking to your follow up visit. Our treatment cannot replace ongoing medical care by a primary care provider (PCP) outside of the emergency department. Thank you for allowing the [facility] team to be part of your care today. Follow up with your BEAM DYER OPERATOR doctor in 2-3 days for re-evaluation and further management. Navid por permitirnos cuidar de usted hoy. Dunn proveedor fue el Dr. Rene. Te trataron por un aborto. La atencin mdica de emergencia que recibi hoy estaba dirigida a michael sntomas agudos. Si le recetaron algn medicamento, ll garcia y tome zenon se le indic. Puede llevar varios amor resolver michael sntomas. Regrese al Departamento de Emergencias si michael sntomas empeoran, no mejoran o si tiene algn otro problema. Comunquese con dunn mdico o llame a tori de los mdicos / clnicas a los que mont[place] sido derivado que figuran en el formulario de informacin de visita del paciente que se incluye en dunn paquete de addis. Lleve consigo cualquier papeleo que reciba al addis junto con cualquier medicamento que est tomando en dunn visita de seguimiento. Nuestro tratamiento no puede reemplazar la atencin m dica continua de un proveedor de atencin primaria (PCP) fuera del departamento de emergencias. Navid por permitir que el equipo de [facility] sea parte de dunn atencin hoy. Laquita un seguimiento con dunn mdico obstetra / gineclogo en 2 a 3 amor para volver a evaluar y seguir administrando. Prescriptions: Ibuprofen [Motrin] 600 mg PO Q6 PRN #20 tab PRN Reason: Pain, Moderate (4-7) Instructions: Spontaneous Miscarriage (ED) Forms: Gen Discharge Inst Bulgarian Print Language: MARTINIQUAIS - Clinical Impression Clinical Impression: Spontaneous miscarriage - Scribe Statement The provider has reviewed the documentation as recorded by the Scribe ayse Joyce All medical record entries made by the Scribe were at my direction and personally dictated by me. I have reviewed the chart and agree that the record accurately reflects my personal performance of the history, physical exam, medical decision making, and the department course for this patient. I have also personally directed, reviewed, and agree with the discharge instructions and disposition.
[2016-12-23 16:09] VITALS: BP 121/84; PULSE 82; RESP 14; TEMP 99.2
== END 2016-12-23 16:20 | disposition home or self-care (01) ==
LOC: C.ER 13:20
DX: O03.9 Complete or unspecified spontaneous abortion without complication (principal)
CPT/HCPCS: 76817; 80053; 81001; 83690; 84702; 85025; 96361; 96374; 99284; J1885; J7040

== ENCOUNTER 2016-12-24 13:51 | Emergency (ER) | payer SELFPAY ==
[2016-12-24 13:52] VITALS: BMI 21.5
[2016-12-24 13:57] VITALS: TEMP 97.8
[2016-12-24] MEDS ORDERED: Sodium Chloride 0.9% 1,000 ML IV ONE ×2 (14:26→16:56)
[2016-12-24] MEDS ORDERED: Morphine 4 MG/ML VIAL IV STA (14:26)
[2016-12-24] MEDS ORDERED: Morphine 4 MG/ML VIAL ONE (14:59)
[2016-12-24] MEDS ORDERED: Sodium Chloride 0.9% 1,000 ML ONE ×2 (14:59→17:31)
[2016-12-24 15:00] LABS: BASO # 0.1 K/uL (0.0-0.2); BASO % 0.7 % (0.0-2.0); EOS # 0.1 K/uL (0.0-0.7); EOS % 0.7 % (0.0-4.0); HEMATOCRIT 29.8 % (34.0-47.0); LYMPH # 2.2 K/uL (1.0-4.3); LYMPH % 16.4 % (20.0-40.0); MEAN CELL VOLUME 85.1 fL (81.0-99.0); MEAN CORPUSCULAR HEMOGLOBIN 28.1 pg (27.0-31.0); MEAN CORPUSCULAR HGB CONC 33.1 g/dL (33.0-37.0); MEAN PLATELET VOLUME 8.2 fL (7.2-11.7); MONO # 0.6 K/uL (0.0-0.8); MONO % 4.6 % (0.0-10.0); RED CELL DISTRIBUTION WIDTH 15.9 % (11.5-14.5); WHITE BLOOD COUNT 13.3 K/uL (4.8-10.8)
[2016-12-24 15:08] LABS: CHLORIDE 101 mmol/L (98-107)
[2016-12-24 15:09] LABS: POTASSIUM 3.7 mmol/L (3.6-5.2); SODIUM 133 mmol/L (132-148)
[2016-12-24 15:12] LABS: ALKALINE PHOSPHATASE 78 U/L (38-126); ALT/SGPT 26 U/L (9-52); AST/SGOT 21 U/L (14-36); BILIRUBIN,TOTAL 0.4 mg/dL (0.2-1.3); BLOOD UREA NITROGEN 11 mg/dL (7-17); CALCIUM 9.2 mg/dl (8.6-10.4); CARBON DIOXIDE 21 mmol/L (22-30); GFR AFRICAN-AMERICAN > 60; GLUCOSE,RANDOM 84 mg/dL (65-105); TOTAL PROTEIN 8.1 g/dL (6.3-8.3)
[2016-12-24 16:16] VITALS: O2SAT 99
[2016-12-24 17:42] LABS: INR 1.1
--- NOTE | 2016-12-24 19:28 | US ---
EXAM: US , Transvaginal CLINICAL HISTORY: 41 years old, female; Signs and symptoms; Lmp or gestational age (in weeks): 7-25-17; Other: Vag bleed; ; Additional info: Evaluation of spontaneous ab in progress TECHNIQUE: Real-time transvaginal obstetrical ultrasound of the maternal pelvis and a first trimester with image documentation. Transvaginal imaging was used for better evaluation of the fetus and adnexa. COMPARISON: US - OB TRANSVAGINAL 12/23/2016 2:19:39 PM FINDINGS: Gestation: No intrauterine gestational sac. Uterus/cervix: Endometrium: 2.1 cm in thickness, heterogeneous, no internal vascularity. Echogenic material within cervix. Ovaries: Not visualized. No adnexal masses. Free fluid: No significant free fluid. IMPRESSION: 1. No intrauterine gestation. Findings compatible with spontaneous . 2. Thickened, heterogeneous endometrium. RPOC not excluded. 3. Probable clot within cervix.
[2016-12-24 20:12] VITALS: BP 118/78; PULSE 99; RESP 16
--- NOTE | 2016-12-24 21:07 | C.PDOC ---
History Of Present Illness 41 year old female presents to the ED with complaints of abdominal cramping, increased vaginal bleeding with the presence of clots. Patient is and has had several ER visits for demise. She was seen in the ED yesterday for spontaneous and admits she did not fill her prescriptions from yesterdays visit. Patient denies dizziness, nausea, vomiting, fever, or chills. Chief Complaint (Nursing): Abdominal Pain History Per: Patient History/Exam Limitations: no limitations Onset/Duration Of Symptoms: Days (1 day ) Current Symptoms Are (Timing): Still Present Location Of Pain/Discomfort: Suprapubic Radiation Of Pain To:: None Quality Of Discomfort: Cramping Associated Symptoms: denies: Fever, Chills, Nausea, Vomiting Exacerbating Factors: None Alleviating Factors: None Recent travel outside of the [place]: No Additional History Per: Prior Records (seen in ED yesterday ) Abnormal Vaginal Bleeding: Yes : 5 Para: 3 Past Medical History Reviewed: Historical Data, Nursing Documentation, Vital Signs Vital Signs: Last Vital Signs Temp 97.8 F 12/24/16 13:54 Pulse 99 H 12/24/16 19:30 Resp 16 12/24/16 19:30 BP 118/78 12/24/16 19:30 Pulse Ox 99 12/24/16 21:15 - Medical History PMH: Anxiety, Asthma (NO MEDS), HTN (NO MEDS) Surgical History: - [facility] Procedures LOW CERVICAL (03/22/13) Family History: States: Unknown Family Hx - Social History Hx Tobacco Use: No Hx Alcohol Use: No Hx Substance Use: No - Immunization History Hx Tetanus Toxoid Vaccination: No Hx Influenza Vaccination: No Hx Pneumococcal Vaccination: No Review Of Systems Constitutional: Negative for: Fever, Chills Gastrointestinal: Positive for: Abdominal Pain (abdominal cramping ). Negative for: Nausea, Vomiting Genitourinary: Positive for: Vaginal Bleeding. Negative for: Dysuria, Hematuria , Vaginal Discharge Physical Exam - Physical Exam Appears: Non-toxic, No Acute Distress Skin: Warm, Dry Head: Atraumatic, Normacephalic Eye(s): bilateral: Normal Inspection Oral Mucosa: Moist Neck: Supple Chest: Symmetrical, No Deformity Cardiovascular: Rhythm Regular, No Murmur Respiratory: No Rales, No Rhonchi, No Wheezing, Other (clear to auscultation bilaterally ) Gastrointestinal/Abdominal: Soft, No Tenderness, No Distention, No Guarding, No Rebound Extremity: Normal ROM, No Tenderness Neurological/Psych: Oriented x3 ED Course And Treatment - Laboratory Results Result Diagrams: 12/24/16 14:57 12/24/16 14:57 O2 Sat by Pulse Oximetry: 99 (RA) Progress Note: Patient was given Toradol, Morphine, Zofran, and Iv fluids. US was ordered. Dr. Quintero was consulted. Following Dr. Quintero's recommendation, patient was instructed to follow up with private OB. Patient understands and will be discharged home. - Physician Consult Information Time Consulting Physician Contacted: 19:00 Physician Contacted: Yogesh Quintero Outcome Of Conversation: Case discussed with cosmetics presser Dr. Quintero. She agreed to peform pelvic exam. Following pelvic exam, Dr. Quintero recommends discharge following ultrasound in ED. Disposition - Disposition Disposition: HOME/ ROUTINE Disposition Time: 19:30 Condition: IMPROVED Additional Instructions: Thank you for letting us take care of you today. Your provider was Dr. Rene. You were treated for a miscarriage. The emergency medical care you received today was directed at your acute symptoms. If you were prescribed any medication, please fill it and take as directed. It may take several days for your symptoms to resolve. Return to the Emergency Department if your symptoms worsen, do not improve, or if you have any other problems. Please contact your doctor or call one of the physicians/clinics you have been referred to that are listed on the Patient Visit Information form that is included in your discharge packet. Bring any paperwork you were given at discharge with you along with any medications you are taking to your follow up visit. Our treatment cannot replace ongoing medical care by a primary care provider (PCP) outside of the emergency department. Thank you for allowing the [facility] team to be part of your care today. Follow up with your PERSONAL COMPUTER SPECIALIST doctor on Monday as scheduled. Navid por permitirnos cuidar de usted hoy. Dunn proveedor fue el Dr. Rene. Te trataron por un aborto. La atencin mdica de emergencia que recibi hoy estaba dirigida a michael sntomas agudos. Si le recetaron algn medicamento, ll garcia y tome zenon se le indic. Puede llevar varios amor resolver michael sntomas. Regrese al Departamento de Emergencias si michael sntomas empeoran, no mejoran o si tiene algn otro problema. Comunquese con dunn mdico o llame a tori de los mdicos / clnicas a los que [place] sido derivado que figuran en el formulario de informacin de visita del paciente que se incluye en dunn paquete de addis. Lleve consigo cualquier papeleo que reciba al addis junto con cualquier medicamento que est tomando en dunn visita de seguimiento. Nuestro tratamiento no puede reemplazar la atencin m dica continua de un proveedor de atencin primaria (PCP) fuera del departamento de emergencias. Navid por permitir que el equipo de [facility] sea parte de dunn atencin hoy. Laquita seguimiento con dunn mdico OB / TRIMMING CUTTER MACHINE el haresh segn lo programado. Prescriptions: Ibuprofen [Motrin] 600 mg PO Q6 PRN #20 tab PRN Reason: Pain, Moderate (4-7) Instructions: Spontaneous Miscarriage (ED) Forms: Gen Discharge Inst Swedish Print Language: [place] ISLANDER - Clinical Impression Clinical Impression: demise - Scribe Statement The provider has reviewed the documentation as recorded by the Scribe Sherice Nicole All medical record entries made by the Scribe were at my direction and personally dictated by me. I have reviewed the chart and agree that the record accurately reflects my personal performance of the history, physical exam, medical decision making, and the department course for this patient. I have also personally directed, reviewed, and agree with the discharge instructions and disposition.
== END 2016-12-24 20:13 | disposition home or self-care (01) ==
LOC: C.ER 13:51
DX: O02.1 Missed abortion (principal)
CPT/HCPCS: 76817; 80053; 84702; 85025; 85610; 85730; 86850; 86900; 96361; 96374; 96375; 99285; J1885; J2270; J2405; J7040

== ENCOUNTER 2017-01-06 08:44 | Emergency (ER) | payer OTHER, SELFPAY ==
[2017-01-06 08:45] VITALS: BMI 21.5
[2017-01-06 08:58] VITALS: O2SAT 100
[2017-01-06] MEDS ORDERED: Sodium Chloride 0.9% 1,000 ML IV ONE (09:22)
--- NOTE | 2017-01-06 09:23 | C.PDOC ---
History Of Present Illness 41 Y/O FEMALE, S/P MISCARRIAGE 18 DAYS AGO, PRESENTS TO ED C/O PERSISTENT VAGINAL BLEEDING, ABDOMINAL CRAMPING, CHILLS. DENIES FEVER, NVD, URINARY SYMPTOMS. REVIEW OF PRIOR RECORDS, MULTIPLE ER VISITS THIS MONTH FOR MISCARRIAGE. ULTRASOUND ON 12/24: NO IUP, RPOC NOT EXCLUDED PER REPORT. Time Seen by Provider: 01/06/17 09:04 Chief Complaint (Nursing): Female Genitourinary History Per: Patient History/Exam Limitations: no limitations Onset/Duration Of Symptoms: Days Current Symptoms Are (Timing): Still Present Quality Of Discomfort: Cramping Associated Symptoms: Chills. denies: Fever, Nausea, Vomiting, Urinary Symptoms Recent travel outside of the [place]: No Abnormal Vaginal Bleeding: Yes Past Medical History Reviewed: Historical Data, Nursing Documentation, Vital Signs Vital Signs: Last Vital Signs Temp 98.5 F 01/06/17 12:32 Pulse 76 01/06/17 12:32 Resp 16 01/06/17 12:32 BP 104/70 01/06/17 12:32 Pulse Ox 100 01/06/17 12:44 - Medical History PMH: Anxiety, Asthma (NO MEDS), HTN (NO MEDS) Surgical History: - [facility] Procedures LOW CERVICAL (03/22/13) Family History: States: Unknown Family Hx - Social History Hx Tobacco Use: No Hx Alcohol Use: No Hx Substance Use: No - Immunization History Hx Tetanus Toxoid Vaccination: No Hx Influenza Vaccination: No Hx Pneumococcal Vaccination: No Review Of Systems Except As Marked, All Systems Reviewed And Found Negative. Constitutional: Positive for: Chills. Negative for: Fever Respiratory: Negative for: Cough, Shortness of Breath, Wheezing Gastrointestinal: Positive for: Abdominal Pain. Negative for: Vomiting, Diarrhea Genitourinary: Positive for: Vaginal Bleeding. Negative for: Dysuria Skin: Negative for: Rash Physical Exam - Physical Exam Appears: Non-toxic, No Acute Distress Skin: Normal Color, Warm, Dry Head: Atraumatic, Normacephalic Oral Mucosa: Moist Chest: Symmetrical Cardiovascular: Rhythm Regular Respiratory: Normal Breath Sounds, No Rales, No Rhonchi, No Wheezing Gastrointestinal/Abdominal: Soft, No Tenderness, No Guarding, No Rebound Back: Normal Inspection Extremity: Normal ROM Neurological/Psych: Oriented x3, Normal Speech, Normal Cognition ED Course And Treatment - Laboratory Results Result Diagrams: 01/06/17 09:40 01/06/17 09:40 O2 Sat by Pulse Oximetry: 100 (RA) Pulse Ox Interpretation: Normal - CT Scan/US ULTRASOUND Other Rad Studies (CT/US): Read By Radiologist, Radiology Report Reviewed CT/US Interpretation: FINDINGS: UTERUS: Measures 11.0 x 6.2 x 7.9 cm. Anteverted. Probable uterine fibroid within the mid right uterus measures approximately 0.9 x 0.8 x 1.0 cm. ENDOMETRIUM: Measures 2.5 cm in diameter. Heterogeneous and hypervascular appearance of the endometrium which contains echoes. CERVIX: No cervical abnormality identified. RIGHT OVARY: Measures 2.6 x 1.3 x 2.6 cm. Blood flow is demonstrated. LEFT OVARY: Measures 2.5 x 1.4 x 2.3 cm. Blood flow is demonstrated. FREE FLUID: No significant free fluid noted. OTHER FINDINGS: None. IMPRESSION: Thickened heterogeneous and hypervascular endometrium worrisome for retained products of conception. Correlate clinically. Heterogeneous uterus with evidence of 1 cm mid right uterine fibroid. Progress - Re-Evaluation Re-evaluation Note: 01/06/17 09:22 ULTRASOUND, LABS, IVFs. 01/06/17 12:41 EXAM [facility] PRIOR. VSS. D/W DR MCDERMOTT AWARE OF ER FINDINGS. MISOPROSTOL 400 MCG X 1, FU OFFICE - Data Reviewed Data Reviewed: Lab, Diagnostic imaging, Old records - Continuity of Care Discussed pt. case with mental hygiene consultant/specialty: Obstetrics/Gynecology Disposition Counseled Patient/Family Regarding: Studies Performed, Diagnosis, Need For Followup - Disposition Referrals: [facility] [Outside] [facility] [Outside] Disposition: HOME/ ROUTINE Disposition Time: 12:42 Condition: IMPROVED Additional Instructions: TUS NIVELES DE SPEEDY SON NORMALES. LE DONALD DADO MEDICAMENTOS PARA AYUDAR A DETENER EL [place]. SEGUIMIENTO CON OBGYN EN CLNICA. Forms: [facility] (Micronesian), Gen Discharge Inst Macanese - Clinical Impression Clinical Impression: Retained products of conception, Vaginal bleeding - Scribe Statement The provider has reviewed the documentation as recorded by the Scribe SM All medical record entries made by the Scribe were at my direction and personally dictated by me. I have reviewed the chart and agree that the record accurately reflects my personal performance of the history, physical exam, medical decision making, and the department course for this patient. I have also personally directed, reviewed, and agree with the discharge instructions and disposition.
[2017-01-06] MEDS ORDERED: Sodium Chloride 0.9% 1,000 ML ONE (09:39)
[2017-01-06 09:49] LABS: BASO # 0.1 K/uL (0.0-0.2); BASO % 0.7 % (0.0-2.0); EOS # 0.2 K/uL (0.0-0.7); HEMATOCRIT 31.3 % (34.0-47.0); LYMPH # 1.7 K/uL (1.0-4.3); LYMPH % 22.1 % (20.0-40.0); MEAN CORPUSCULAR HEMOGLOBIN 27.9 pg (27.0-31.0); MEAN CORPUSCULAR HGB CONC 33.2 g/dL (33.0-37.0); MEAN PLATELET VOLUME 8.3 fL (7.2-11.7); MONO # 0.4 K/uL (0.0-0.8); MONO % 5.3 % (0.0-10.0); RED CELL DISTRIBUTION WIDTH 15.9 % (11.5-14.5); WHITE BLOOD COUNT 7.8 K/uL (4.8-10.8)
[2017-01-06 09:55] LABS: CHLORIDE 102 mmol/L (98-107); SODIUM 135 mmol/L (132-148)
[2017-01-06 09:56] LABS: INR 1.2; POTASSIUM 3.6 mmol/L (3.6-5.2)
[2017-01-06 09:58] LABS: BLOOD UREA NITROGEN 11 mg/dL (7-17); CARBON DIOXIDE 21 mmol/L (22-30); GFR AFRICAN-AMERICAN > 60
[2017-01-06 09:59] LABS: CALCIUM 8.8 mg/dl (8.6-10.4); GLUCOSE,RANDOM 93 mg/dL (65-105)
--- NOTE | 2017-01-06 11:56 | US ---
HISTORY: vag bleed sp miscarriage ro POC COMPARISON: None available. TECHNIQUE: Real-time transabdominal pelvic ultrasound was performed. In addition a transvaginal pelvic ultrasound was necessary to better depict pelvic anatomy. FINDINGS: UTERUS: Measures 11.0 x 6.2 x 7.9 cm. Anteverted. Probable uterine fibroid within the mid right uterus measures approximately 0.9 x 0.8 x 1.0 cm. ENDOMETRIUM: Measures 2.5 cm in diameter. Heterogeneous and hypervascular appearance of the endometrium which contains echoes. CERVIX: No cervical abnormality identified. RIGHT OVARY: Measures 2.6 x 1.3 x 2.6 cm. Blood flow is demonstrated. LEFT OVARY: Measures 2.5 x 1.4 x 2.3 cm. Blood flow is demonstrated. FREE FLUID: No significant free fluid noted. OTHER FINDINGS: None. IMPRESSION: Thickened heterogeneous and hypervascular endometrium worrisome for retained products of conception. Correlate clinically. Heterogeneous uterus with evidence of 1 cm mid right uterine fibroid.
[2017-01-06 12:33] VITALS: BP 104/70; PULSE 76; RESP 16; TEMP 98.5
== END 2017-01-06 13:09 | disposition home or self-care (01) ==
LOC: C.ER 08:44
DX: O03.1 Delayed or excessive hemorrhage following incomplete spontaneous abortion (principal)
CPT/HCPCS: 76830; 76856; 80048; 84702; 85025; 85610; 85730; 86850; 86900; 96360; 99284; J7040

== ENCOUNTER 2017-01-10 08:50 | Emergency (ER) | payer OTHER ==
[2017-01-10 08:56] VITALS: BMI 24.2
[2017-01-10 08:58] VITALS: RESP 18; TEMP 97.5; O2SAT 100
--- NOTE | 2017-01-10 09:35 | C.PDOC ---
History Of Present Illness 41 y/o F c history of spontaneous around 12/23 p/w persistent vaginal bleeding and lower abdominal pain. Patient was in this ED 4 days ago for the same, had US which showed findings concerning for retained POC. Patient was treated with 400 mcg misoprostol and instructed to f/u with Dr. Jackson in office. Patient denies fever, dyspnea, vomiting. Time Seen by Provider: 01/10/17 09:13 Chief Complaint (Nursing): Female Genitourinary Past Medical History Vital Signs: Last Vital Signs Temp 97.5 F L 01/10/17 08:56 Pulse 88 01/10/17 08:56 Resp 18 01/10/17 08:56 BP 113/76 01/10/17 08:56 Pulse Ox 100 01/10/17 11:26 - Medical History PMH: Anxiety, Asthma (NO MEDS), HTN (NO MEDS) Denies: Chronic Kidney Disease Surgical History: - [facility] Procedures LOW CERVICAL (03/22/13) Family History: States: Unknown Family Hx - Social History Hx Tobacco Use: No Hx Alcohol Use: No Hx Substance Use: No - Immunization History Hx Tetanus Toxoid Vaccination: No Hx Influenza Vaccination: No Hx Pneumococcal Vaccination: No Review Of Systems Except As Marked, All Systems Reviewed And Found Negative. Constitutional: Negative for: Fever Cardiovascular: Negative for: Chest Pain Physical Exam - Physical Exam Additional Physical Exam Comments: Constitutional: No acute distress. Head: Normocephalic. Atraumatic. Eyes: PERRL. ENT: Moist mucous membranes. Neck: Supple. Cardiovascular: Regular rate. Radial pulse 2+ bilaterally. Chest: No tenderness. Respiratory: Clear to auscultation bilaterally. GI: Soft. Mild lower abdominal tenderness.. Nondistended. Back: No CVA tenderness. Musculoskeletal: No tenderness or swelling of extremities. Skin: No rash. Neurologic: Alert, no focal deficit. ED Course And Treatment - Laboratory Results Result Diagrams: 01/10/17 09:48 01/10/17 09:48 O2 Sat by Pulse Oximetry: 100 Medical Decision Making Medical Decision Making: When asked if made appointment with OB, patient confused and has no idea what I am referring to. Will reassess Hb, WBC, repeat US. Discussed with Dr. Quintero, if positive for POC, will readminister misoprostol at 800 mcg, if negative, observe for cessation of bleeding. Regardless, f/u with OBGYN. Will regive follow up information and explain to patient at length. Impression: Thickened heterogeneous endometrium which demonstrates vascularity; appearance consistent with retained products of conception. Correlate clinically. Two probable uterine fibroids within the anterior uterus. Instructed to return to ED immediately for fever, worsening pain, or symptoms of anemia. Disposition - Disposition Referrals: [facility] [Outside] [facility] [Outside] [facility] [Outside] Disposition: HOME/ ROUTINE Disposition Time: 11:25 Condition: STABLE Prescriptions: Ibuprofen [Motrin] 600 mg PO Q6 #25 tab Instructions: Spontaneous Miscarriage (ED) Forms: [employer] (Montenegrin) - Clinical Impression Clinical Impression: Retained products of conception
[2017-01-10 09:57] LABS: BASO # 0.1 K/uL (0.0-0.2); BASO % 0.9 % (0.0-2.0); EOS # 0.2 K/uL (0.0-0.7); EOS % 2.3 % (0.0-4.0); HEMATOCRIT 31.5 % (34.0-47.0); LYMPH # 2.4 K/uL (1.0-4.3); LYMPH % 26.3 % (20.0-40.0); MEAN CELL VOLUME 83.5 fL (81.0-99.0); MEAN CORPUSCULAR HEMOGLOBIN 27.1 pg (27.0-31.0); MEAN CORPUSCULAR HGB CONC 32.5 g/dL (33.0-37.0); MEAN PLATELET VOLUME 8.2 fL (7.2-11.7); MONO # 0.4 K/uL (0.0-0.8); MONO % 4.6 % (0.0-10.0); RED CELL DISTRIBUTION WIDTH 15.9 % (11.5-14.5); WHITE BLOOD COUNT 8.9 K/uL (4.8-10.8)
[2017-01-10 10:09] LABS: CHLORIDE 103 mmol/L (98-107); POTASSIUM 3.7 mmol/L (3.6-5.2); SODIUM 137 mmol/L (132-148)
[2017-01-10 10:11] LABS: ALB/GLOB RATIO 1.4 (1.0-2.1); AST/SGOT 23 U/L (14-36); BILIRUBIN,TOTAL 0.6 mg/dL (0.2-1.3); BLOOD UREA NITROGEN 14 mg/dL (7-17); CARBON DIOXIDE 21 mmol/L (22-30); GFR AFRICAN-AMERICAN > 60; TOTAL PROTEIN 7.7 g/dL (6.3-8.3)
[2017-01-10 10:12] LABS: ALKALINE PHOSPHATASE 97 U/L (38-126); ALT/SGPT 35 U/L (9-52); CALCIUM 8.8 mg/dl (8.6-10.4); GLUCOSE,RANDOM 100 mg/dL (65-105)
--- NOTE | 2017-01-10 11:18 | US ---
Indication: s/p spont , bleeding/pain, r/o RPOC Comparison: Pelvic ultrasound performed 01/06/17 Technique: Transvaginal pelvic ultrasound Findings: The uterus measures approximately 10.8 x 6.5 x 8.0 cm. Retroverted. Two probable anterior uterine fibroids are identified measuring approximately 1.2 x 0.9 x 1.1 cm and 1.0 x 0.8 x 1.0 cm. The endometrium appears thickened and heterogeneous measuring approximately 3.2 cm in diameter with evidence of vascularity. Cervix length measures approximately 4.3 cm. The right ovary measures 2.2 x 1.3 x 2.0 cm. The left ovary measures 2.2 x 1.6 x 2.0 cm. Blood flow was demonstrated to both ovaries. Impression: Thickened heterogeneous endometrium which demonstrates vascularity; appearance consistent with retained products of conception. Correlate clinically. Two probable uterine fibroids within the anterior uterus.
[2017-01-10 11:47] VITALS: BP 111/75; PULSE 74
== END 2017-01-10 11:47 | disposition home or self-care (01) ==
LOC: C.ER 08:50
DX: O03.4 Incomplete spontaneous abortion without complication (principal)
CPT/HCPCS: 76830; 80053; 85025; 96374; 99284; J1885

== ENCOUNTER 2017-05-27 20:29 | Emergency (ER) | payer OTHER ==
[2017-05-27 20:29] VITALS: BMI 24.2
[2017-05-27 20:42] VITALS: RESP 18; O2SAT 100
--- NOTE | 2017-05-27 21:50 | C.PDOC ---
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 Patient states that she has associated nausea and vomiting. Patient reports that she took Tylenol which provided no relief. She denies having history of migraines. Time Seen by Provider: 05/27/17 20:55 Chief Complaint (Nursing): Headache History Per: Patient History/Exam Limitations: no limitations Onset/Duration Of Symptoms: Hrs Current Symptoms Are (Timing): Still Present Severity: Moderate Past Medical History Reviewed: Historical Data, Nursing Documentation, Vital Signs Vital Signs: Last Vital Signs Temp 98 F 05/27/17 23:50 Pulse 68 05/27/17 23:50 Resp 18 05/27/17 23:50 BP 120/80 05/27/17 23:50 Pulse Ox 100 05/27/17 23:50 - Medical History PMH: Anxiety, Asthma (NO MEDS), HTN (NO MEDS) Denies: Chronic Kidney Disease Surgical History: - [facility] Procedures LOW CERVICAL (03/22/13) Family History: States: No Known Family Hx - Social History Hx Tobacco Use: No Hx Alcohol Use: No Hx Substance Use: No - Immunization History Hx Tetanus Toxoid Vaccination: No Hx Influenza Vaccination: No Hx Pneumococcal Vaccination: No Review Of Systems Except As Marked, All Systems Reviewed And Found Negative. Constitutional: Negative for: Fever, Chills Gastrointestinal: Positive for: Nausea, Vomiting Neurological: Positive for: Headache Physical Exam - Physical Exam Appears: Non-toxic, No Acute Distress Skin: Normal Color, Warm Head: Atraumatic, Normacephalic Eye(s): bilateral: Normal Inspection Nose: Normal Oral Mucosa: Moist Neck: Supple Chest: Symmetrical Cardiovascular: Rhythm Regular Respiratory: Normal Breath Sounds, No Accessory Muscle Use, No Rales, No Rhonchi , No Wheezing Extremity: Normal ROM Neurological/Psych: Oriented x3, Normal Speech, Normal Motor, Normal Sensation ED Course And Treatment O2 Sat by Pulse Oximetry: 100 (RA) Pulse Ox Interpretation: Normal - CT Scan/US Head CT Other Rad Studies (CT/US): Read By Radiologist, Radiology Report Reviewed CT/US Interpretation: Accession No. : [id number]. Patient Name / ID : ONOFRE REINOSO / [id number]. Exam Date : 05/27/2017 22:51:50 ( Approved ). Study Comment : Sex / Age : F / 41Y. Creator : SOFYA CARRILLO. Dictator : Beauty Therapist : [employer] Service [employer] Operator : SOFYA CARRILLO. Approver2 : Report Date : 05/27/2017 23:37:00. My Comment : . [employer]. [facility] Division of Radiology. [address] [place] [address]. Tel. no. . . . Patient Name: VIOLETA POE . Pt. Address: [address] [place] [address]. Rec #: [id number]. [place] [address]: Gini Henao PA-C. Pt Order Location: [facility]. : 1975 Female Age: 41 Order #: [id number]. Reason for exam: headache, vomiting, UCG negative. . . . . . CT Scan. . . HEAD W/O CONTRAST Exam Date: 05/27/17. . This imaging exam was performed at [facility]. EXAM: CT Head Without Intravenous Contrast. . CLINICAL HISTORY: 41 years old, female; Pain; Headache; Prior surgery; Patient HX: 01-25-16. images sent; Additional info: Headache, vomiting, ucg negative. . TECHNIQUE: Axial computed tomography images of the head/brain without intravenous. contrast. All CT scans at this facility use one or more dose reduction. techniques, viz.: automated exposure control; ma/kV adjustment per patient size. (including targeted exams where dose is matched to indication; i.e. head) ; or. iterative reconstruction technique. Coronal and sagittal reformatted images were created and reviewed. . COMPARISON: CT - HEAD W/O CONTRAST 2016- 11-14 16:57. . FINDINGS: Brain: Unremarkable. No hemorrhage. No significant white matter disease. No edema. Ventricles: Unremarkable. No ventriculomegaly. Bones/joints: Unremarkable. No acute fracture. Soft tissues: Unremarkable. Sinuses: Unremarkable as visualized. No acute sinusitis. Mastoid air cells: Unremarkable as visualized. No mastoid effusion. . IMPRESSION: No evidence of an acute intracranial abnormality. . . Dictated By: Sofya Carrillo MD. Dictated Date/Time: 05/27/172336. Signed By: Sofya Carrillo MD. Date Signed: 05/27/172336. Transcribed By: [facility]. Transcribe Date/Time: 05/27/172336 Progress Note: CAT Scan-Head ordered. Reglan IM given to patient. On re- evaluation, patient feels better, no longer c/o headache, denies nausea/ vomiting. Patient is stable to be d/c home with PMD/clinic follow up. Disposition - Disposition Referrals: [facility] [Outside] Disposition: HOME/ ROUTINE Disposition Time: 23:46 Condition: IMPROVED Additional Instructions: Follow up with PMD/Clinic within 1-2 days. Return to ED if feel worse. Prescriptions: Acetaminophen/Butalbital/Caf [Fioricet] 1 tab PO TID PRN #20 tab PRN Reason: Headache Metoclopramide [Reglan] 1 tab PO TID #25 tab Instructions: Headache, Adult (DC) Forms: [email or web address] (Cayman Islander) Print Language: OCCITAN - Clinical Impression Clinical Impression: Headache - PA / ELECTRICAL TEST ENGINEER / Resident Statement MD/DO has reviewed & agrees with the documentation as recorded. - Scribe Statement The provider has reviewed the documentation as recorded by the Eder Knight Provider Attestation All medical record entries made by the Janessaibmichael were at my direction and personally dictated by me. I have reviewed the chart and agree that the record accurately reflects my personal performance of the history, physical exam, medical decision making, and the department course for this patient. I have also personally directed, reviewed, and agree with the discharge instructions and disposition.
--- NOTE | 2017-05-27 23:37 | CT ---
EXAM: CT Head Without Intravenous Contrast CLINICAL HISTORY: 41 years old, female; Pain; Headache; Prior surgery; Patient HX: 01-25-16 images sent; Additional info: Headache, vomiting, ucg negative TECHNIQUE: Axial computed tomography images of the head/brain without intravenous contrast. All CT scans at this facility use one or more dose reduction techniques, viz.: automated exposure control; ma/kV adjustment per patient size (including targeted exams where dose is matched to indication; i.e. head); or iterative reconstruction technique. Coronal and sagittal reformatted images were created and reviewed. COMPARISON: CT - HEAD W/O CONTRAST 2016-01-25 16:57 FINDINGS: Brain: Unremarkable. No hemorrhage. No significant white matter disease. No edema. Ventricles: Unremarkable. No ventriculomegaly. Bones/joints: Unremarkable. No acute fracture. Soft tissues: Unremarkable. Sinuses: Unremarkable as visualized. No acute sinusitis. Mastoid air cells: Unremarkable as visualized. No mastoid effusion. IMPRESSION: No evidence of an acute intracranial abnormality.
[2017-05-27 23:51] VITALS: BP 120/80; PULSE 68; TEMP 98
== END 2017-05-27 23:53 | disposition home or self-care (01) ==
LOC: C.ER 20:29
DX: R51 Headache (principal)
CPT/HCPCS: 70450; 96372; 99284; J2765

== ENCOUNTER 2017-07-27 09:33 | Emergency (ER) | payer OTHER ==
[2017-07-27 09:33] VITALS: BMI 24.2
[2017-07-27 10:06] VITALS: PULSE 79; O2SAT 99
[2017-07-27 11:09] LABS: HCG,QUALITATIVE URINE NEGATIVE (NEGATIVE)
[2017-07-27 11:13] LABS: SQUAMOUS EPITHIAL 5 /hpf (0-5); URINE BILIRUBIN NEGATIVE (NEGATIVE); URINE BLOOD NEGATIVE (NEGATIVE); URINE CLARITY Hazy (Clear); URINE COLOR Yellow (YELLOW); URINE GLUCOSE (UA) NORMAL (Normal); URINE LEUKOCYTE ESTERASE NEG Leu/uL (Negative); URINE PROTEIN NEGATIVE (NEGATIVE); URINE UROBILINOGEN NORMAL mg/dL (0.2-1.0)
--- NOTE | 2017-07-27 12:15 | C.PDOC ---
History Of Present Illness 41 y/o female w/o significant PMHx presents to ED for evaluation of suprapubic abdominal pain intermittent for 6 months. Pt also reports, for past 2 weeks noted increased sleeping and weakness. Patient admits, was seen here 6 months ago due to spontaneous miscarriage" and has not had menses since 03/2017". Otherwise, patient denies fever, chills, recent illness, severe headache, dizziness, vertigo, CP, SOB, dyspnea, palpitation, abd. pain, V/D, change in appetite, denies vaginal irritation/discharge or vaginal bleeding, denies pain during the intercourse, or any other complaints at this time. Ambulate to Ed for evaluation, not in nay apparent distress. Time Seen by Provider: 07/27/17 10:29 Chief Complaint (Nursing): Abdominal Pain History Per: Patient History/Exam Limitations: no limitations Onset/Duration Of Symptoms: Days Current Symptoms Are (Timing): Still Present Location Of Pain/Discomfort: Suprapubic Past Medical History Reviewed: Historical Data, Nursing Documentation, Vital Signs Vital Signs: Last Vital Signs Temp 98.7 F 07/27/17 12:14 Pulse 79 07/27/17 12:14 Resp 17 07/27/17 12:14 BP 121/80 07/27/17 12:14 Pulse Ox 99 07/27/17 12:38 - Medical History PMH: Anxiety, Asthma (NO MEDS), HTN (NO MEDS) Surgical History: - [facility] Procedures LOW CERVICAL (03/22/13) Family History: States: No Known Family Hx - Social History Hx Tobacco Use: No Hx Alcohol Use: No Hx Substance Use: No - Immunization History Hx Tetanus Toxoid Vaccination: No Hx Influenza Vaccination: No Hx Pneumococcal Vaccination: No Review Of Systems Constitutional: Negative for: Fever, Chills Gastrointestinal: Positive for: Abdominal Pain. Negative for: Nausea, Vomiting Genitourinary: Negative for: Dysuria, Vaginal Bleeding Skin: Negative for: Rash Neurological: Positive for: Weakness. Negative for: Numbness, Headache Physical Exam - Physical Exam Appears: Well, Non-toxic, No Acute Distress Skin: Warm, Dry, No Rash Head: Normacephalic Eye(s): bilateral: PERRL Nose: No Flaring, No Discharge Oral Mucosa: Moist, No Drooling Lips: Normal Appearing Throat: No Erythema Neck: Trachea Midline, Supple Cardiovascular: Rhythm Regular, No Murmur, No JVD Respiratory: No Decreased Breath Sounds, No Accessory Muscle Use, No Rales, No Rhonchi, No Stridor, No Wheezing Gastrointestinal/Abdominal: Soft, Tenderness (mild suprapubic), No Distention, No Guarding, No Rebound Back: No CVA Tenderness, No Paraspinal Tenderness Extremity: Normal ROM, No Pedal Edema, Capillary Refill (<2 seconds) Neurological/Psych: Oriented x3, Normal Speech, Normal Cognition ED Course And Treatment - Laboratory Results Result Diagrams: 07/27/17 12:17 07/27/17 12:17 Lab Interpretation: Normal Urine POC: Negative O2 Sat by Pulse Oximetry: 99 (RA) Pulse Ox Interpretation: Normal Progress Note: On re-evaluation, pt is afebrile, hemodynamiclay stable. Non- toxic, ambulatory with stable gait. PulsEOx 99% RA Neck; Supple, (-) carotid bruits B/L. ENT: no acute findings. Lungs: CTA B/L, BS equal B/L. Abd: benign, (-) guarding, (-) rebound. back: (-) CVA tenderness. neurologicaly intact. Blood work review, no acute abnormalities. UA ((-). Pt has clinical findings c /w dysuria, weakness, nos. Pt advised. ref. to F/u with PMD, SOLUTION COORDINATOR in 2-3 days for re-eavl. return to Ed if any worsening or new changes. Disposition Counseled Patient/Family Regarding: Studies Performed, Diagnosis, Need For Followup, Rx Given - Disposition [facility] Disposition: HOME/ ROUTINE Disposition Time: 12:20 Condition: STABLE Additional Instructions: Encourage fluids follow up with SOLUTION COORDINATOR in 2-3 days for re-evaluation and further treatment as need return to Ed if any new changes. Prescriptions: Ciprofloxacin [Cipro] 1 tab PO BID #6 tab Ibuprofen [Motrin Tab] 600 mg PO TID #20 tab Instructions: Dysuria, Adult (DC) Forms: [employer] (Finnish) Print Language: TRISTANIAN - Clinical Impression Clinical Impression: Diffuse abdominal pain, Dysuria - PA / BEHAVIOR SPECIALIST / Resident Statement MD/DO has reviewed & agrees with the documentation as recorded. - Scribe Statement The provider has reviewed the documentation as recorded by the Eder Ureña All medical record entries made by the Eder were at my direction and personally dictated by me. I have reviewed the chart and agree that the record accurately reflects my personal performance of the history, physical exam, medical decision making, and the department course for this patient. I have also personally directed, reviewed, and agree with the discharge instructions and disposition.
[2017-07-27 12:16] VITALS: BP 121/80; RESP 17; TEMP 98.7
[2017-07-27 12:24] LABS: BASO # 0.1 K/uL (0.0-0.2); BASO % 0.7 % (0.0-2.0); EOS # 0.5 K/uL (0.0-0.7); EOS % 6.1 % (0.0-4.0); HEMOGLOBIN 11.6 g/dL (11.0-16.0); LYMPH # 3.2 K/uL (1.0-4.3); LYMPH % 36.8 % (20.0-40.0); MEAN CELL VOLUME 76.1 fL (81.0-99.0); MEAN CORPUSCULAR HEMOGLOBIN 24.9 pg (27.0-31.0); MEAN CORPUSCULAR HGB CONC 32.7 g/dL (33.0-37.0); MEAN PLATELET VOLUME 8.7 fL (7.2-11.7); MONO # 0.5 K/uL (0.0-0.8); MONO % 5.7 % (0.0-10.0); NEUT # 4.4 K/uL (1.8-7.0); NEUT % 50.7 % (50.0-75.0); RBC 4.64 Mil/uL (3.80-5.20); RED CELL DISTRIBUTION WIDTH 19.6 % (11.5-14.5); WHITE BLOOD COUNT 8.6 K/uL (4.8-10.8)
[2017-07-27 12:38] LABS: BLOOD UREA NITROGEN 12 mg/dL (7-17); CALCIUM 9.6 mg/dl (8.6-10.4); GFR AFRICAN-AMERICAN > 60; GFR NON-AFRICAN AMERICAN > 60
== END 2017-07-27 13:32 | disposition home or self-care (01) ==
LOC: C.ER 09:33
DX: R30.0 Dysuria (principal); R10.84 Generalized abdominal pain; I10 Essential (primary) hypertension